=== PATIENT | male | born 1960 | race Caucasian/White ===

== ENCOUNTER 2023-08-23 15:00 | Outpatient (RCR) | payer OTHER, SELFPAY ==
[2023-08-23 15:11] VITALS: BP 140/80; PULSE 53
== END 2023-10-22 13:21 | disposition home or self-care (01) ==
LOC: HO.PT 15:00
PROVIDERS: PCP Internal Medicine; Visit Provider Otolaryngology
DX: H81.93 Unspecified disorder of vestibular function, bilateral (principal)
CPT/HCPCS: 97161